=== PATIENT | female | born 1945 | race Caucasian/White ===

== ENCOUNTER 2021-11-26 16:14 | Emergency (ER) | payer MEDICARE, BC, SELFPAY ==
--- NOTE | ~2021-11-26 | XR_ITS ---
EXAMINATION: XR forearm RT 2V DATE: 11/26/2021 17:45 INDICATION: Right forearm laceration. Fall. TECHNIQUE: 2 views of right forearm were obtained. COMPARISON: None. FINDINGS: Bone alignment is normal. No fracture. 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 There are enthesophytes at medial and lateral humeral epicondyles. No elbow joint effusion. There are densities dorsal to proximal ulna. IMPRESSION: 1. Densities dorsal to proximal ulna, which may be dystrophic calcifications, skin calcifications, or foreign bodies. 2. Polyarticular osteoarthritis. Reviewed, dictated and finalized at location E. IMPRESSION: 1. Densities dorsal to proximal ulna, which may be dystrophic calcifications, s kin calcifications, or foreign bodies. 2. Polyarticular osteoarthritis.
[2021-11-26 16:42] VITALS: BP 130/76; PULSE 95; RESP 18; TEMP 36.6; O2SAT 96
--- NOTE | 2021-11-26 17:25 | ED.GENADULT ---
HPI - General Adult General Chief complaint: Extremity Injury, Upper Stated complaint: fell, right wrist injury Time Seen by Provider: 11/26/21 17:02 History of Present Illness HPI narrative: Patient is a 76-year-old female here for evaluation of a laceration to her right forearm. Patient states that she was out in her garden working when she tripped on an object, causing her to fall forward and hit her hand/arm against a pot. This led to a laceration. She denies any head injury or loss of consciousness in the fall. Bleeding controlled prior to arrival. She is unsure of her last tetanus. No further injury sustained in the accident or arthralgias. Related Data Allergies Allergy/AdvReac Type Severity Reaction Status Date / Time bupropion [From Wellbutrin] Allergy Unknown Verified 11/26/21 16:45 Review of Systems Review of Systems: Gen.: Denies fevers or chills Eyes: Denies eye pain or visual change ENT: Denies congestion Respiratory: Denies shortness of breath or cough CV: Denies chest pain or palpitations GI: Denies abdominal pain nausea, emesis or diarrhea denies burning, urgency, frequency or hematuria Musculoskeletal: Denies back pain or muscle pain Neuro: Denies numbness, tingling, weakness or focal weakness Skin: Reports laceration to right wrist Except as documented, all other systems reviewed and negative Exam Narrative: Gen: Alert, oriented, no acute distress Eyes: EOMI, no icterus Pulm: Respirations even and unlabored, symmetric thorax expansion, no audible stridor or visible cyanosis CV: Regular rate per telemetry GI: No distension, no voluntary/involuntary guarding Neuro: AOx4, moves all extremities without apparent difficulty or weakness, follows commands Skin: Patient has a 4 cm V-shaped laceration to the posterior aspect of her right forearm with no active bleeding, underlying musculature visible with subcutaneous fat visible, no foreign body visualized Psych: Normal mood/affect, insight/judgement good, adequate fund of knowledge, recent/remote memory intact Course Vital Signs Vital signs: Vital Signs Temperature 97.8 F 11/26/21 16:42 Pulse Rate 95 11/26/21 16:42 Respiratory Rate 18 11/26/21 16:42 Blood Pressure 130/76 11/26/21 16:42 Pulse Oximetry 96 11/26/21 16:42 Oxygen Delivery Room Air 11/26/21 16:42 Temperature 97.8 F 11/26/21 16:42 Pulse Rate 95 11/26/21 16:42 Respiratory Rate 18 11/26/21 16:42 Blood Pressure 130/76 11/26/21 16:42 Pulse Oximetry 96 11/26/21 16:42 Oxygen Delivery Room Air 11/26/21 16:42 Procedures Laceration Laceration 1: Date: 11/26/21 Time: 19:04 Site: other (right arm) Size (cm): 4 Description: flap and irregular Depth: simple, single layer Local Anesthetic: lidocaine 1% and with epi Amount of anesthesia used (mL): 5 Pre-repair: wound explored, irrigated and irrigated extensively ====== Skin Level ====== Skin layer closed with: other (ethilon) Size (cm): 4-0 Number of sutures: 8 Technique: simple, interrupted ====== Subcutaneous Layer ====== ====== Muscle Layer ====== ====== Tendon Layer ====== Medical Decision Making MDM Narrative Medical decision making narrative: Patient is a 76-year-old female here for evaluation of a irregular V-shaped laceration to her left forearm sustained in a mechanical fall earlier today Here she is nontoxic-appearing with normal vital signs, no active bleeding to laceration. X-ray without fracture, she does have a nonspecific finding that may represent a foreign body or calcifications, patient states that she has had this like that in the past and notes it is chronic, no foreign body visualized in wound so feel this is very unlikely. Wound was closed with simple interrupted sutures. Her tetanus was updated in the ED. She was given return precautions and she voiced understanding. Vital Sig
[2021-11-26] MEDS: TETANUS,DIPHTHERIA,AC PERTUSSIS ADULT (0.5 ML) BOOSTRIX IM (17:48)
== END 2021-11-26 19:11 | disposition home or self-care (01) ==
PROVIDERS: Emergency Provider Emergency Medicine
DX: S51.811A Laceration without foreign body of right forearm, initial encounter (principal); Z23 Encounter for immunization; M19.031 Primary osteoarthritis, right wrist; M18.9 Osteoarthritis of first carpometacarpal joint, unspecified; Y93.H2 Activity, gardening and landscaping; W18.09XA Striking against other object with subsequent fall, initial encounter
CPT/HCPCS: 12002; 73090; 90471; 90715; 99283